=== PATIENT | male | born 1950 | race Caucasian/White ===

== ENCOUNTER 2017-07-18 14:22 | Emergency (ER) | payer OTHER ==
[2017-07-18 14:33] VITALS: TEMP 98.8
--- NOTE | 2017-07-18 15:18 | EDPHY ---
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 The glass did not break. The incident occurred shortly prior to arrival he reports moderate pain and moderate bleeding that slowed with direct pressure. He drove himself here by private vehicle. The thumb pain worsens slightly with movement but no other exacerbating or alleviating factors are noted and he did not take any medication prior to arrival. ROS: Neuro: No numbness or tingling Cardiovascular no pallor to the affected thumb Musculoskeletal: No other injuries from the incident beside the thumb. 5 point ROS is otherwise negative. Past Medical/Surgical History: Otherwise healthy Smoking Status: Never smoked Physical Exam: Physical Exam Vital signs are normal. General: No acute distress. Eyes: Pupils equal and react to light. Extraocular motions are intact. Lungs: No respiratory distress. Cardiac: Brisk capillary refill is intact throughout. Pulses are 2+ and symmetric in the affected extremity. Skin: No rash or pallor. Extremities: Atraumatic normal except for thumb Left thumb: Patient has tenderness to the distal phalanx with a 2 cm full- thickness laceration extends from the interphalangeal region to the distal- palmar aspect region with mild bleeding. There is a perioral 1 cm laceration with mild bleeding. There is a 3rd 1 cm laceration at the paronychial region with the small arterial pulsating bleeder. No foreign bodies are appreciated. Neuro: Alert and oriented with no sensorimotor deficits in the affected thumb. Initial differential diagnosis: Thumb laceration, contusion, thumb fracture Constitutional: Initial Vital Signs Temperature (C) 37.1 C 07/18/17 14:25 Heart Rate 89 07/18/17 14:25 Respiratory Rate 16 07/18/17 14:25 Blood Pressure 118/66 07/18/17 14:25 O2 Sat (%) 94 07/18/17 14:25 O2 Delivery Mode Room Air Allergies/Adverse Reactions: No Known Allergies Allergy (Unverified 07/18/17 14:28) MDM/Departure - MDM Imaging Results: Imaging Impressions Finger X-Ray 07/18/17 14:40 Impression: 1. No osseous abnormality seen left thumb. Procedures: Digital block: After verbal consent, using a 50 50 mix of 0.5% Marcaine 2% plain lidocaine, 27 gauge needle, chlorhexidine scrub under sterile conditions- 3 injections were administered to the base of the affected finger, 8 mL with good effect. Patient tolerated this well. There were no complications. The 3 wounds are described in exam: The wound was copiously irrigated with saline. The wound was explored for foreign bodies and none were found. The wound was prepped and draped in the normal sterile fashion. The edges of the 2 cm wound were reapproximated using 4 0 Prolene on a P3 needle-6 running sutures with good hemostasis and cosmesis. The 1 cm wound parallel to the 1st 2 cm wound is sutured with 4 Prolene P3 needle 4 running sutures in the 3rd wounds paronychial 1 cm laceration is sutured with 3 running sutures 4 0 Prolene with through the thumbnail with good tissue approximation, hemostasis and cosmesis. The patient tolerated the procedure well. There were no complications. Patient is placed in a dressing by our tech and I counseled regarding wound care. He declined further analgesics - Depart Disposition: Home, Routine, Self-Care Clinical Impression: Thumb laceration Qualifiers: Encounter type: initial encounter Damage to nail status: unspecified Foreign body presence: without foreign body Laterality: left Qualified Code(s): S61.012A - Laceration without foreign body of left thumb without damage to nail , initial encounter Contusion of thumb, left Qualifiers: Encounter type: initial encounter Damage to nail status: without damage Qualified Code(s): S60.012A - Contusion of left thumb without damage to nail, initial encounter Condition: Good Instructions: Care For Your Stitches (ED), Contusion in Adults (ED) Additional Instructions: Diagnosis: 1. Thumb contusion 2. Thumb laceration Plan: Keep your thumb clean and dry for 2 days. Then removed dressing, and clean daily with warm soapy water Return for suture removal in 10-12 days Return sooner for redness, discharge or other concerns for infection Ibuprofen Tylenol for thumb pain as needed. Referrals: Jean Marie Carranza MD [Primary Care Provider] - As per Instructions
[2017-07-18 16:14] VITALS: BP 120/66; PULSE 88; RESP 14; O2SAT 95
== END 2017-07-18 16:15 | disposition home or self-care (01) ==
LOC: CED 14:22
PROC: 0HQGXZZ Repair Left Hand Skin, External Approach (ICD-10-PCS; principal; 2017-07-18)
DX: S61.012A Laceration without foreign body of left thumb without damage to nail, initial encounter (principal); W23.1XXA Caught, crushed, jammed, or pinched between stationary objects, initial encounter; Y99.8 Other external cause status; Y93.89 Activity, other specified
CPT/HCPCS: 73140-PO